=== PATIENT | male | born 1965 | race Caucasian/White ===

== ENCOUNTER 2016-09-26 01:54 | Inpatient (IN) | payer OTHER ==
[~2016-09-26] VITALS: Ht 182.9 cm; Wt 118.8 kg
--- NOTE | ~2016-09-26 | EKG ---
[address] [place] [address] ELECTROCARDIOGRAM REPORT Name: ZABRINA ORNELAS Room #: 547-P [facility]#: [id number] Admission: 09/26/16 Attend Phys: Cassius Francisco MD Discharge: Date of : 63 Report #: [id number] THIS REPORT FOR: //name// [facility] ED Test Date: 2016-09-26 Test Time: 02:11:47 Pat Name: ZABRINA ORNELAS Department: Room: 547 Gender: M Financial Counselor: adalberto : 1965 Requested By: Leighton Bernstein Order Number: [id number] MD: Aroldo Lugo Measurements Intervals [place] Rate: 71 P: 15 RI: 146 QRS: -3 QRSD: 94 T: 6 QT: 422 QTc: 459 Interpretive Statements Sinus rhythm Abnormal R-wave progression, early transition Baseline wander in lead(s) III Compared to ECG 11/11/2014 16:58:24 Sinus tachycardia no longer present Electronically Signed On 09-26-2016 8:12:23 CDT by Aroldo Lugo [email or web address] <ELECTRONICALLY SIGNED> By: Aroldo Lugo MD, [facility] 09/26/16 0812 0 0 Aroldo Lugo MD, [facility] /EPI
[~2016-09-26 01:54] MED LIST: ACCUPRIL; ACID CONTROL20 MG PO; AMBIEN 5 MG TABL5 M1 PO; AMLODIPINE BESY10 MG PO; ATIVAN1 MG PO; CARAFATE 1 GM TA1 G1 PO; CELEXA; CITRATE OF MAG296 ML PO; CLONIDINE0.1; DESYREL; KLONOPIN2 MG; NEXIUM40 MG PO; NORCO 5-325 TA1 EACH PO; OXYCONTIN10 M1; PEPCID40 MG PO; PHENERGAN 25 MG25 M1 PO; PHENERGAN25 MG RE; PROTONIX40 MG PO; REVIA 50 MG TAB50 M1 PO; TOPAMAX50 MG; ZANTAC 150MG T150 MG PO; ZOFRAN 4 MG ORAL4 M1 DIS; ZOFRAN 4 MG ORAL4 MG PO; ZOFRAN ODT4 MG PO; ZOLOFT50 MG PO
[2016-09-26 01:59] VITALS: BP 161/104
[2016-09-26 02:29] LABS: ABSOLUTE NEUTROPHILS 4.5 thou/uL (1.4-8.2); BASOPHILS 0.9 % (0.0-2.0); HEMATOCRIT 45.5 % (42.0-52.0); HEMOGLOBIN 15.6 gm/dL (14.0-18.0); LYMPHOCYTES 16.1 % (24.0-44.0); MANUAL DIFF NO; MCH 31.5 pg (26.0-34.0); MCHC 34.3 g/dL (28.0-37.0); MCV 91.8 fL (80.0-100.0); MONOCYTES 10.3 % (1.0-8.0); PLATELET COUNT 139 thou/uL (150-400); POLYS 70.7 % (36.0-66.0); RBC 4.95 mil/uL (4.50-6.00); WBC 6.3 thou/uL (4.0-11.0)
[2016-09-26 02:36] LABS: CALCIUM 8.2 mg/dL (8.5-10.1); CREATININE 0.9 mg/dL (0.7-1.3); POTASSIUM 3.7 mmol/L (3.5-5.1)
[2016-09-26 02:40] LABS: ALBUMIN 4.1 g/dL (3.4-5.0); TOTAL BILIRUBIN 0.7 mg/dL (<0.1-1.0); TOTAL PROTEIN 7.3 g/dL (6.4-8.2)
[2016-09-26 03:09] LABS: URINE BILIRUBIN NEGATIVE (Negative); URINE BLOOD NEGATIVE (Negative); URINE COLOR YELLOW; URINE GLUCOSE-RANDOM* NEGATIVE (Negative); URINE KETONES NEGATIVE (Negative); URINE LEUKOCYTES-REFLEX NEGATIVE (Negative); URINE PROTEIN (DIPSTICK) NEGATIVE (Negative); URINE SPECIFIC GRAVITY 1.015 (1.003-1.035); URINE UROBILINOGEN 0.2 E.U./dl (0.2-1.0)
[2016-09-26 03:17] LABS: AMP/METHAMP Negative (Negative); BARBITURATES Negative (Negative); BENZODIAZEPINES Negative (Negative); COCAINE Negative (Negative); METHADONE Negative (Negative); OPIATES Negative (Negative); PCP Negative (Negative); THC Negative (Negative)
[2016-09-26 03:52] VITALS: BP 160/98
[2016-09-26 03:53] VITALS: BP 152/100
[2016-09-26 08:11] VITALS: BP 148/97
[2016-09-26 15:58] VITALS: BP 144/94
[2016-09-26 19:57] VITALS: BP 143/86
[2016-09-27 05:29] VITALS: BP 153/92
[2016-09-27 07:37] VITALS: BP 135/78
[2016-09-27 08:36] LABS: HEMOGLOBIN 14.6 gm/dL (14.0-18.0); MCH 31.3 pg (26.0-34.0); MCV 92.2 fL (80.0-100.0); PLATELET COUNT 124 thou/uL (150-400); RBC 4.66 mil/uL (4.50-6.00); RDW 14.8 % (10.5-14.5); WBC 3.8 thou/uL (4.0-11.0)
[2016-09-27 08:38] LABS: MANUAL DIFF YES
[2016-09-27 08:46] LABS: CALCIUM 7.9 mg/dL (8.5-10.1); CREATININE 0.8 mg/dL (0.7-1.3); POTASSIUM 3.7 mmol/L (3.5-5.1)
[2016-09-27 09:05] LABS: ABSOLUTE NEUTROPHILS 2.6 thou/uL (1.4-8.2); ANISOCYTOSIS 1+; POLYCHROMASIA OCCASIONAL; TOTAL CELL COUNT 100
[2016-09-27 16:03] VITALS: BP 150/96
[2016-09-27 19:23] VITALS: BP 140/90
[2016-09-28 03:20] VITALS: BP 155/104
[2016-09-28 07:28] VITALS: BP 128/79
[2016-09-28 09:47] VITALS: BP 128/79
[2016-09-28 11:56] VITALS: BP 128/79
== END 2016-09-28 11:45 | disposition home or self-care (01) | DRG 392 ==
LOC: ER 01:54 → EROBS 03:15 → 5S 03:41
PROVIDERS: Emergency Medicine; Internal Medicine Geriatric Medicine
DX: K59.00 Constipation, unspecified (principal); G89.29 Other chronic pain; F41.9 Anxiety disorder, unspecified; F32.9 Major depressive disorder, single episode, unspecified; J45.909 Unspecified asthma, uncomplicated; F10.10 Alcohol abuse, uncomplicated; Z96.619 Presence of unspecified artificial shoulder joint; Z96.659 Presence of unspecified artificial knee joint; M25.569 Pain in unspecified knee; K76.0 Fatty (change of) liver, not elsewhere classified; R51 Headache; Z88.6 Allergy status to analgesic agent; Z71.41 Alcohol abuse counseling and surveillance of alcoholic; Z79.899 Other long term (current) drug therapy; Z86.010 Personal history of colon polyps
CPT/HCPCS: 10086

== ENCOUNTER 2016-10-01 15:39 | Emergency (ER) | payer OTHER ==
[~2016-10-01] VITALS: Ht 182.9 cm; Wt 113.4 kg
--- NOTE | ~2016-10-01 | EKG ---
[place] [address] [facility] [place] [address] ELECTROCARDIOGRAM REPORT Name: ZABRINA ORNELAS [facility] [id number] Admission: 10/01/16 Attend Phys: Discharge: 10/01/16 Date of : 63 Report #: [id number] THIS REPORT FOR: //name// [facility] ED Test Date: 2016-10-01 Test Time: 16:27:37 Pat Name: ZABRINA ORNELAS Department: Room: Gender: M Food Safety Coordinator: mateusz : 1965 Requested By: Cindy Beverly Order Number: [id number] MD: Allan Ferreira Measurements Intervals [place] Rate: 96 P: 39 VA: 152 QRS: -6 QRSD: 85 T: 18 QT: 354 QTc: 448 Interpretive Statements Sinus rhythm Baseline wander in lead(s) III,aVL,V5 Compared to ECG 09/26/2016 02:11:47 No significant changes Electronically Signed On 10-06-2016 8:06:40 CDT by Allan Ferreira [email or web address] <ELECTRONICALLY SIGNED> By: Allan Ferreira MD 05/805 26 26 Allan Ferreira MD /REGINE
[2016-10-01 16:29] LABS: ABSOLUTE NEUTROPHILS 6.9 thou/uL (1.4-8.2); BASOPHILS 0.7 % (0.0-2.0); EOSINOPHILS 1.4 % (0.0-3.0); HEMATOCRIT 47.8 % (42.0-52.0); HEMOGLOBIN 16.4 gm/dL (14.0-18.0); LYMPHOCYTES 12.9 % (24.0-44.0); MCH 31.4 pg (26.0-34.0); MCHC 34.3 g/dL (28.0-37.0); MCV 91.6 fL (80.0-100.0); MONOCYTES 9.7 % (1.0-8.0); PLATELET COUNT 184 thou/uL (150-400); POLYS 75.3 % (36.0-66.0); RBC 5.22 mil/uL (4.50-6.00); RDW 14.8 % (10.5-14.5); WBC 9.2 thou/uL (4.0-11.0)
[2016-10-01 16:30] LABS: MANUAL DIFF NO
[2016-10-01 16:38] LABS: ANION GAP 10 mmol/L (7-16); BUN 13 mg/dL (7-18); CALCIUM 9.5 mg/dL (8.5-10.1); CHLORIDE 105 mmol/L (98-107); CO2 25 mmol/L (21-32); GLUCOSE 104 mg/dL (74-106); POTASSIUM 4.2 mmol/L (3.5-5.1); SODIUM 140 mmol/L (136-145)
[2016-10-01 16:45] LABS: ALBUMIN 4.8 g/dL (3.4-5.0); ALKALINE PHOSPHATASE 73 U/L (46-116); SGOT 23 U/L (15-37); SGPT 37 U/L (30-65); TOTAL PROTEIN 8.3 g/dL (6.4-8.2); TROPONIN-I < 0.04 ng/mL (<0.04-0.07)
[2016-10-01] MEDS ORDERED: CARAFATE 1 GM TA1 G1 PO (18:16)
[2016-10-01] MEDS ORDERED: PRILOSEC 20 MG20 MG PO (18:16)
[2016-10-01] MEDS ORDERED: PROMS25 WY RECTAL (18:16)
[2016-10-01] MEDS ORDERED: ZOFRAN ODT4 MG PO (18:16)
[2016-10-01] MEDS ORDERED: PERCOCET 5-3251 EACH PO (18:32)
[2016-10-01 18:55] LABS: URINE BILIRUBIN NEGATIVE (Negative); URINE BLOOD NEGATIVE (Negative); URINE COLOR YELLOW; URINE GLUCOSE-RANDOM* NEGATIVE (Negative); URINE KETONES NEGATIVE (Negative); URINE LEUKOCYTES-REFLEX NEGATIVE (Negative); URINE PROTEIN (DIPSTICK) TRACE (Negative); URINE UROBILINOGEN 0.2 E.U./dl (0.2-1.0)
== END 2016-10-01 19:00 | disposition home or self-care (01) ==
LOC: ER 15:39
PROVIDERS: Physician Assistant
DX: K29.70 Gastritis, unspecified, without bleeding (principal); J45.909 Unspecified asthma, uncomplicated; Z98.890 Other specified postprocedural states; Z88.5 Allergy status to narcotic agent; F10.99 Alcohol use, unspecified with unspecified alcohol-induced disorder

== ENCOUNTER 2016-10-17 12:48 | Inpatient (IN) | payer OTHER ==
[~2016-10-17] VITALS: Ht 182.9 cm; Wt 117.9 kg
--- NOTE | ~2016-10-17 | EKG ---
[address] [email or web address] [address] ELECTROCARDIOGRAM REPORT Name: ZABRINA ORNELAS Room #: 434-P [facility] IN M.R.#: [id number] Admission: 10/17/16 Attend Phys: Davie Barrett MD Discharge: 10/19/16 Date of : 63 Report #: [id number] THIS REPORT FOR: //name// [facility] ED Test Date: 2016-10-17 Test Time: 13:24:31 Pat Name: ZABRINA ORNELAS Department: Room: 434 Gender: M Applications Project Manager: MILAGRO : 1965 Requested By: Andressa Jasso Order Number: [id number] MD: Aroldo Lugo Measurements Intervals [place] Rate: 78 P: 9 DC: 143 QRS: -9 QRSD: 91 T: 4 QT: 414 QTc: 472 Interpretive Statements Sinus rhythm No significant abnormality Compared to ECG 10/01/2016 16:27:37 No significant changes Electronically Signed On 10-19-2016 13:47:04 CDT by Aroldo Lugo [email or web address] <ELECTRONICALLY SIGNED> By: Aroldo Lugo MD, [facility] 10/19/16 1347 1324 1324 Aroldo Lugo MD, [facility] /EPI
--- NOTE | ~2016-10-17 | H ---
[facility] [place] [address] HISTORY AND PHYSICAL Name: ZABRINA ORNELAS Room #: 434-P [facility] IN M.R.#: [id number] Admission: 10/17/16 Attend Phys: Davie Barrett MD Discharge: 10/19/16 Date of : 63 Report #: [id number] THIS REPORT FOR: //name// CC: Davie Barrett [facility] physician/PCP DATE OF SERVICE: 10/17/2016 DATE OF ADMISSION: 10/17/2016. REASON FOR ADMISSION: Nausea, vomiting, abdominal pain. HISTORY OF PRESENT ILLNESS: The patient is a 51-year-old gentleman who has had frequent admissions with similar complaints of severe nausea, vomiting and abdominal pain. He suffers from alcoholism as well as chronic knee and back pain. He was just recently admitted and discharged earlier this month with similar findings which seemed to resolve on their own. He again presented to the emergency room severely symptomatic today, notably hypertensive, complaining of significant pain all over his abdomen and unable to keep any food down with significant retching, dry heaves as well as some chills and other subjective symptoms. He is fairly uncomfortable in the emergency room and unable to keep much food down and is being admitted for further evaluation. He denies new headaches, skin rashes, diarrhea, dizziness, chest pain, shortness of breath or other problems at this time. PAST MEDICAL HISTORY: Includes, 1. Chronic alcohol use. 2. Chronic back pain. 3. Recurrent episodes of nausea, vomiting, abdominal pain. 4. Depression. 5. Erosive esophagitis and gastritis. PAST SURGICAL HISTORY: Includes shoulder, neck, back, and knee surgeries. FAMILY HISTORY: None significant. SOCIAL HISTORY: He is a nonsmoker. Reports heavy alcohol use. No drug use. REVIEW OF SYSTEMS: Twelve point review of systems performed and negative except as mentioned in history of present illness. PHYSICAL EXAMINATION: VITAL SIGNS: The patient is afebrile, pulse is 75, respiratory rate 20, O2 sat 97 on room air, and blood pressure is 196/120. GENERAL: Fairly uncomfortable gentleman, writhing in bed. CARDIOVASCULAR: S1, S2 present. [facility] [address] [place] [address] HISTORY AND PHYSICAL Name: ZABRINA ORNELAS Room #: 434-P [facility] IN M.R.#: [id number] Admission: 10/17/16 Attend Phys: Davie Barrett MD Discharge: 10/19/16 Date of : 63 Report #: [id number] RESPIRATORY: Air entry present bilaterally. ABDOMEN: Soft. No severe guarding, rebound or rigidity. Slight tenderness to epigastric region. EXTREMITIES: Lower extremities without edema. NEUROLOGICAL: Awake, alert. No obvious focal findings. SKIN: Unremarkable. No rash or lesions. LABORATORIES AND INVESTIGATIONS: CBC unremarkable. Chemistry within normal range. Urinalysis is pending. Imaging with a KUB demonstrates a nonspecific pattern. Recent abdomen and pelvis CT done earlier this month without any acute findings. ASSESSMENT AND PLAN: This is a 51-year-old gentleman presenting with a constellation of symptoms including nausea, vomiting, abdominal pain and hypertension. 1. Nausea, vomiting, abdominal pain. Unclear if this is related to any drug withdrawal or medication effect. His drug screen in the past has been negative. He denies any street drugs, and present screen testing is pending. He may have severe gastritis versus possibly a gastric or duodenal ulcer, especially in light of known esophagitis. At the present time, we will involve GI in his care to see if he may benefit from an EGD. This was reportedly considered at his last hospitalization, however, does not appear to have been performed. In the meantime, he will be started on antiemetics, pain control meds and famotidine. He does not appear to have concerning findings on his abdomen concerning for repeating a CT scan. His recent CT as mentioned above was unrevealing. 2. Hypertensive urgency, likely in the setting of significant discomfort and pain. We will attempt to control his symptoms as well as use p.r.n. blood pressure control medicines in the interim. 3. Deep venous thrombosis prophylaxis with SCDs. 4. Depression. Resume his home meds once he is able to take p.o. <ELECTRONICALLY SIGNED> By: Davie Barrett MD 10/21/16 1405 1629 1826 Davie Barrett MD /nt
[~2016-10-17 12:48] MED LIST changes: +PERCOCET 5-3251 EACH PO; +PRILOSEC 20 MG20 MG PO; +PROMS25 WY RECTAL
[2016-10-17 12:50] VITALS: BP 150/124
[2016-10-17 13:31] LABS: ANION GAP 13 mmol/L (7-16); BUN 12 mg/dL (7-18); CALCIUM 9.2 mg/dL (8.5-10.1); CHLORIDE 106 mmol/L (98-107); CO2 21 mmol/L (21-32); GLUCOSE 108 mg/dL (74-106); POTASSIUM 3.7 mmol/L (3.5-5.1); SODIUM 140 mmol/L (136-145)
[2016-10-17 13:34] LABS: ABSOLUTE NEUTROPHILS 5.2 thou/uL (1.4-8.2); BASOPHILS 0.6 % (0.0-2.0); EOSINOPHILS 1.2 % (0.0-3.0); HEMATOCRIT 48.9 % (42.0-52.0); HEMOGLOBIN 16.8 gm/dL (14.0-18.0); MCH 31.7 pg (26.0-34.0); MCHC 34.3 g/dL (28.0-37.0); MCV 92.4 fL (80.0-100.0); MONOCYTES 9.5 % (1.0-8.0); PLATELET COUNT 173 thou/uL (150-400); POLYS 73.7 % (36.0-66.0); RBC 5.29 mil/uL (4.50-6.00); RDW 14.6 % (10.5-14.5)
[2016-10-17 13:35] LABS: MANUAL DIFF NO
[2016-10-17] MEDS ORDERED: PHENERGAN 25 MG25 M1 PO (13:35)
[2016-10-17] MEDS ORDERED: PROMS25 WY RECTAL (13:35)
[2016-10-17 13:40] LABS: ALBUMIN 4.6 g/dL (3.4-5.0); ALKALINE PHOSPHATASE 73 U/L (46-116); DIRECT BILIRUBIN 0.1 mg/dL (<0.1-0.3); SGOT 23 U/L (15-37); SGPT 32 U/L (30-65); TOTAL PROTEIN 8.3 g/dL (6.4-8.2); TROPONIN-I < 0.04 ng/mL (<0.04-0.07)
[2016-10-17 16:07] VITALS: BP 196/121
[2016-10-17 18:17] VITALS: BP 155/115
[2016-10-17 19:46] VITALS: BP 160/112
[2016-10-17 20:41] VITALS: BP 120/83
[2016-10-18] VITALS (7 sets, daily range): BP systolic 124–182; BP diastolic 68–116
[2016-10-18 03:14] LABS: HEMATOCRIT 42.3 % (42.0-52.0); MCH 31.7 pg (26.0-34.0); MCHC 34.8 g/dL (28.0-37.0); MCV 91.1 fL (80.0-100.0); RBC 4.64 mil/uL (4.50-6.00); RDW 14.6 % (10.5-14.5); WBC 6.3 thou/uL (4.0-11.0)
[2016-10-18 03:18] LABS: HEMOGLOBIN 14.7 gm/dL (14.0-18.0)
[2016-10-18 03:21] LABS: CALCIUM 8.4 mg/dL (8.5-10.1); CREATININE 0.7 mg/dL (0.7-1.3); POTASSIUM 3.6 mmol/L (3.5-5.1)
[2016-10-18] MEDS ORDERED: BENTYL 10 MG CA10 MG PO (08:57)
[2016-10-19 03:30] VITALS: BP 140/71
[2016-10-19 05:40] LABS: HEMATOCRIT 40.9 % (42.0-52.0); HEMOGLOBIN 13.9 gm/dL (14.0-18.0); MCH 31.5 pg (26.0-34.0); MCHC 33.9 g/dL (28.0-37.0); MCV 92.9 fL (80.0-100.0); RBC 4.41 mil/uL (4.50-6.00); RDW 14.9 % (10.5-14.5); WBC 3.9 thou/uL (4.0-11.0)
[2016-10-19 06:00] LABS: ALBUMIN 3.2 g/dL (3.4-5.0); CREATININE 0.7 mg/dL (0.7-1.3); POTASSIUM 3.7 mmol/L (3.5-5.1)
[2016-10-19 07:54] VITALS: BP 138/89
[2016-10-19 11:31] VITALS: BP 138/89
[2016-10-19 12:51] VITALS: BP 138/89
== END 2016-10-19 12:52 | disposition home or self-care (01) | DRG 392 ==
LOC: ER 12:48 → 4S 15:04 → EROBS 15:04 → 4S 15:54
PROVIDERS: Emergency Medicine; Hospitalist
DX: R11.2 Nausea with vomiting, unspecified (principal); K21.9 Gastro-esophageal reflux disease without esophagitis; J45.909 Unspecified asthma, uncomplicated; I10 Essential (primary) hypertension; R10.9 Unspecified abdominal pain; G89.29 Other chronic pain; M54.9 Dorsalgia, unspecified; M25.569 Pain in unspecified knee; I16.0 Hypertensive urgency; F10.21 Alcohol dependence, in remission; F32.9 Major depressive disorder, single episode, unspecified; Z79.899 Other long term (current) drug therapy; Z88.6 Allergy status to analgesic agent; Z79.1 Long term (current) use of non-steroidal anti-inflammatories (NSAID)
CPT/HCPCS: 10195

== ENCOUNTER 2017-07-05 05:27 | Emergency (ER) | payer OTHER ==
[~2017-07-05] VITALS: Ht 185.4 cm; Wt 124.7 kg
--- NOTE | ~2017-07-05 | EKG ---
[address] [address] [place] [address] ELECTROCARDIOGRAM REPORT Name: ZABRINA ORNELAS Room #: DEP [facility]#: [id number] Admission: 07/05/17 Attend Phys: Discharge: 07/05/17 Date of : 63 Report #: [id number] THIS REPORT FOR: //name// [facility] ED Test Date: 2017-07-05 Test Time: 05:31:02 Pat Name: ZABRINA ORNELAS Department: Room: Gender: M Health Workers: 99 : 1965 Requested By: Carlos Li Order Number: [id number] MD: Aroldo Lugo Measurements Intervals [place] Rate: 95 P: 36 MA: 146 QRS: -8 QRSD: 89 T: -5 QT: 385 QTc: 484 Interpretive Statements Sinus rhythm Borderline T abnormalities, inferior leads Borderline prolonged QT interval Compared to ECG 10/17/2016 13:24:31 T-wave abnormality now present QT interval is slightly thickened Electronically Signed On 07-06-2017 7:33:48 SIPHON OPERATOR by Aroldo Lugo [email or web address] <ELECTRONICALLY SIGNED> By: Aroldo Lugo MD, [facility] 07/06/17 0733 0 Aroldo Lugo MD, [facility] /EPI
[~2017-07-05 05:27] MED LIST changes: +BENTYL 10 MG CA10 MG PO
[2017-07-05 05:53] LABS: HEMATOCRIT 47.7 % (42.0-52.0); HEMOGLOBIN 16.7 gm/dL (14.0-18.0); MCV 94.3 fL (80.0-100.0); PLATELET COUNT 157 thou/uL (150-400); RBC 5.06 mil/uL (4.50-6.00); RDW 16.6 % (10.5-14.5); WBC 3.8 thou/uL (4.0-11.0)
[2017-07-05] MEDS ORDERED: TRAMADOL 50 MG50 MG PO (05:56)
[2017-07-05] MEDS ORDERED: NAPROSYN500 MG PO (05:56)
[2017-07-05 06:04] LABS: ANION GAP 15 mmol/L (7-16); BUN 4 mg/dL (7-18); CALCIUM 8.8 mg/dL (8.5-10.1); CHLORIDE 104 mmol/L (98-107); CO2 23 mmol/L (21-32); GLUCOSE 131 mg/dL (74-106); POTASSIUM 3.4 mmol/L (3.5-5.1); SODIUM 142 mmol/L (136-145)
[2017-07-05 06:10] LABS: ALBUMIN 3.9 g/dL (3.4-5.0); MAGNESIUM 1.9 mg/dL (1.8-2.4); SGOT 31 U/L (15-37); SGPT 43 U/L (30-65); TOTAL BILIRUBIN 0.4 mg/dL (<0.1-1.0); TOTAL PROTEIN 7.8 g/dL (6.4-8.2); TROPONIN-I < 0.04 ng/mL (<0.06)
[2017-07-05 06:25] LABS: ABSOLUTE NEUTROPHILS 2.6 thou/uL (1.4-8.2); ANISOCYTOSIS 1+; ATYPICAL LYMPHS 1 %
[2017-07-05 06:26] LABS: POLYCHROMASIA OCCASIONAL
[2017-07-05 06:39] VITALS: BP 157/101
== END 2017-07-05 06:41 | disposition home or self-care (01) ==
LOC: ER 05:27
PROVIDERS: Emergency Medicine
DX: R07.89 Other chest pain (principal); F10.10 Alcohol abuse, uncomplicated; I10 Essential (primary) hypertension; J45.909 Unspecified asthma, uncomplicated; G47.30 Sleep apnea, unspecified; Z88.5 Allergy status to narcotic agent; W00.0XXA Fall on same level due to ice and snow, initial encounter; Y93.89 Activity, other specified; Y92.89 Other specified places as the place of occurrence of the external cause; Y99.8 Other external cause status

== ENCOUNTER 2018-07-31 04:51 | Inpatient (IN) | payer BC ==
[~2018-07-31] VITALS: Ht 190.5 cm; Wt 136.1 kg
--- NOTE | ~2018-07-31 | HC ---
[facility] [place] [address] CONSULTATION Name: ZABRINA ORNELAS Room #: 358-P [facility] IN M.R.#: [id number] Admission: 07/31/18 ������������������ Attend Phys: Cassius Francisco MD Discharge: ������������������ Date of : 63 Report #: [id number] THIS REPORT FOR: //name// CC: FAM unknown Cassius Francisco DATE OF SERVICE: 07/31/2018 HISTORY OF PRESENT ILLNESS: This is a gentleman with respect to alcohol use disorder. He acknowledges some difficulty maintaining sobriety. He acknowledges underlying anxiety and at times depression. ____ is outpatient provider. Unclear if there has been much adherence lately. Significant craving when he does not use, "I just try to keep busy." He is feeling better from the standpoint of withdrawal. PAST PSYCHIATRIC HISTORY: Depression, anxiety, alcohol use disorder. ALLERGIES: HYDROCODONE. CURRENT MEDICATIONS: Include Ativan detox, citalopram, amlodipine, thiamine. PAST MEDICAL HISTORY: Secondary to alcohol use disorder. SOCIAL HISTORY: I believe he lives alone. Tries to keep busy with work. MENTAL STATUS EXAMINATION: male, casually dressed, mild tremor, stable mood and affect. No suicidal ideation, no homicidal ideation. No hallucinations, no delusions. Insight and judgment are improved. DIAGNOSES: Alcohol use disorder, major depressive disorder, recurrent, moderate; generalized anxiety disorder. RECOMMENDATIONS: Can continue to follow with ____ and should probably resume citalopram. Can use trazodone for insomnia. Prior to discharge, would probably look at starting naltrexone 25-50 mg and following up on hepatic function panel within 2-4 weeks on this agent. In general, he has not benefitted from AA groups per his report. He has done better by trying to stay out of the house and keep busy. ��������������������������������������������� ���������������������������������������� By: ��������������������������������������������� [id number] 0324 Moisés Mejia MD /nt
[~2018-07-31 04:51] MED LIST changes: +NAPROSYN500 MG PO; +TRAMADOL 50 MG50 MG PO
[2018-07-31 04:52] VITALS: BP 191/100
[2018-07-31 05:11] LABS: BASOPHILS 0.9 % (0.0-2.0); EOSINOPHILS 0.3 % (0.0-3.0); HEMATOCRIT 45.5 % (42.0-52.0); HEMOGLOBIN 15.5 gm/dL (14.0-18.0); LYMPHOCYTES 12.2 % (24.0-44.0); MCV 91.2 fL (80.0-100.0); MONOCYTES 5.5 % (1.0-8.0); PLATELET COUNT 148 thou/uL (150-400); POLYS 81.1 % (36.0-66.0); RBC 4.98 mil/uL (4.50-6.00); RDW 14.3 % (10.5-14.5); WBC 6.2 thou/uL (4.0-11.0)
[2018-07-31 05:19] LABS: CALCIUM 8.2 mg/dL (8.5-10.1); CREATININE 0.9 mg/dL (0.7-1.3); POTASSIUM 3.2 mmol/L (3.5-5.1)
[2018-07-31 05:25] LABS: ALBUMIN 4.5 g/dL (3.4-5.0); DIRECT BILIRUBIN 0.2 mg/dL (<0.1-0.3); TOTAL BILIRUBIN 1.2 mg/dL (<0.1-1.0); TOTAL PROTEIN 8.4 g/dL (6.4-8.2)
[2018-07-31 06:02] LABS: PCO2 32.3 mmHg (35.0-45.0); pH 7.312 (7.360-7.450); sO2 95.5 % (92.0-98.0)
[2018-07-31 06:24] LABS: URINE BILIRUBIN NEGATIVE (Negative); URINE BLOOD TRACE (Negative); URINE CLARITY CLEAR; URINE COLOR YELLOW; URINE GLUCOSE-RANDOM* 2+ (Negative); URINE KETONES 2+ (Negative); URINE LEUKOCYTES-REFLEX NEGATIVE (Negative); URINE NITRITE-REFLEX NEGATIVE (Negative); URINE PROTEIN (DIPSTICK) 1+ (Negative); URINE SPECIFIC GRAVITY >= 1.030 (1.005-1.035); URINE UROBILINOGEN 0.2 E.U./dl (0.2-1.0)
[2018-07-31 07:56] LABS: AMP/METHAMP Negative (Negative); BARBITURATES Negative (Negative); BENZODIAZEPINES Negative (Negative); COCAINE Negative (Negative); METHADONE Negative (Negative); OPIATES Negative (Negative); PCP Negative (Negative)
[2018-07-31 09:39] VITALS: BP 162/93
[2018-07-31 10:02] VITALS: BP 162/93
[2018-07-31 10:05] VITALS: BP 160/103
[2018-07-31 11:13] LABS: PHOSPHORUS 3.1 mg/dL (2.5-4.9)
[2018-07-31 11:40] LABS: FOLIC ACID 15.6 ng/mL (8.6-58.9)
--- NOTE | 2018-07-31 12:15 | NUR ---
52 YO MALE ADMITTED TO 358 BY CART FROM ER. A&O TO PLACE, TIME OFF ON WHAT DAY THOUGH KNOWS WHO THE PRESIDENT IS. TREMORS TO ALL EXTREM. NOTED, SWEATING, BODY IS FLUSHED IN COLOR, RESP. AT 24-26/MIN. HR IS 106. ORIENTED PT TO ROOM/CALL LIGHT, IV CONT. STARTED, IV ATIVAN GIVEN, THIAMIN IV STARTED. CIWAL AND ADMISSION ASSESSMENT COMPLETE.
[2018-07-31 16:09] VITALS: BP 185/117
[2018-07-31 19:44] VITALS: BP 156/103
--- NOTE | 2018-08-01 04:33 | NUR ---
PATIENT AOX4 MAKES NEEDS KNOWN. PATIENT CIWA SCORE WAS HIGH AT 2000 ATIVAN GIVEN PER ORDER. PATIENT WAS ASLEEP FOR 0000 CIWA, NO S/S OF WITHDRAW AT THIS TIME. PATIENT IN BED ASLEEP AT THIS TIME BREATHING REGULAR AND UNLABOURED.
[2018-08-01 04:44] VITALS: BP 172/111
[2018-08-01 07:39] VITALS: BP 156/102
[2018-08-01 07:42] VITALS: BP 163/100
--- NOTE | 2018-08-01 09:08 | NUR ---
PT A&OX4, IV INTACT IN L AC INFUSING NS@100/HR. HAS MODERATE TREMORS, HR NORMAL. BP 156/102. PT GIVEN AM SCHED NORVASC. PT C/O CONGESTION, LS HAVE SLIGHT EXP. WHEEZES. WILL CONT PO.
[2018-08-01 09:22] LABS: HEMATOCRIT 43.4 % (42.0-52.0); HEMOGLOBIN 14.7 gm/dL (14.0-18.0); MCH 31.1 pg (26.0-34.0); MCHC 33.9 g/dL (28.0-37.0); MCV 91.7 fL (80.0-100.0); RBC 4.74 mil/uL (4.50-6.00); RDW 14.6 % (10.5-14.5); WBC 5.2 thou/uL (4.0-11.0)
[2018-08-01 09:33] LABS: CALCIUM 8.3 mg/dL (8.5-10.1); CREATININE 0.8 mg/dL (0.7-1.3); MAGNESIUM 2.2 mg/dL (1.8-2.4); POTASSIUM 3.7 mmol/L (3.5-5.1)
[2018-08-01 11:16] VITALS: BP 153/92
[2018-08-01 15:57] VITALS: BP 141/96
[2018-08-01 19:02] VITALS: BP 118/64
[2018-08-02 00:20] VITALS: BP 152/96
[2018-08-02 03:27] VITALS: BP 144/95
--- NOTE | 2018-08-02 06:41 | NUR ---
PT MAKING PROGRESS TOWARDS GOALS. NOTED CHEST XRAY RESULTS. LUNGS CLEAR TO AUSCULTATION. PT DOES REPORT NASAL CONGESTION AND HEADACHE. REFUSED TYLENOL THIS AM IN FAVOR OF WAITING FOR THE NEXT DOSE OF IBUPROFEN.
[2018-08-02 08:00] VITALS: BP 172/109
--- NOTE | 2018-08-02 08:06 | EKG ---
[address] [place] [address] ELECTROCARDIOGRAM REPORT Name: ZABRINA ORNELAS Room #: 358-P [facility] IN M.R.#: [id number] ������������������ Admission: 07/31/18 ������������������ Attend Phys: Cassius Francisco MD Discharge: ������������������ Date of : 63 Report #: [id number] ����������������������������������������������������������������� [id number] THIS REPORT FOR: //name// [facility] ED Test Date: 2018-07-31 Test Time: 05:52:59 Pat Name: ZABRINA ORNELAS Department: Room: 358 Gender: M Consumer Services Consultant: fuad : 1965 Requested By: Cady Cowan Order Number: [id number] MD: Aroldo Lugo Measurements Intervals [place] Rate: 100 P: 18 NE: 161 QRS: -4 QRSD: 96 T: 1 QT: 384 QTc: 496 Interpretive Statements Sinus tachycardia Borderline prolonged QT interval Compared to ECG 07/05/2017 05:31:02 No significant change was found Electronically Signed On 08-02-2018 8:06:19 CDT by Aroldo Lugo [email or web address] ��������������������������������������������� <ELECTRONICALLY SIGNED> ���������������������������������������� By: Aroldo Lugo MD, [facility] ��������������������������������������������� 08/02/18 [phone] 0552 Aroldo Lugo MD, [facility] /EPI
[2018-08-02 09:23] LABS: HEMATOCRIT 43.3 % (42.0-52.0); HEMOGLOBIN 14.5 gm/dL (14.0-18.0); MCH 31.1 pg (26.0-34.0); MCHC 33.5 g/dL (28.0-37.0); RBC 4.65 mil/uL (4.50-6.00); RDW 14.6 % (10.5-14.5); WBC 4.7 thou/uL (4.0-11.0)
[2018-08-02 09:44] LABS: CALCIUM 8.3 mg/dL (8.5-10.1); CREATININE 0.6 mg/dL (0.7-1.3); MAGNESIUM 2.1 mg/dL (1.8-2.4); POTASSIUM 3.9 mmol/L (3.5-5.1)
[2018-08-02 14:00] VITALS: BP 157/110
--- NOTE | 2018-08-02 15:26 | NUR ---
assessment: CM REVIEWED CHART AND MET WITH PATIENT AT THE BEDSIDE. PT IS ALERT AND ORIENTED X4. PT REPORTS HE LIVES IN AN APT ALONE. PT REPORTS HAVING ABOUT 12 STEPS TO ENTER WITH HANDRAILS ON EACH SIDE. PT WAS ADMITTED FOR ETOH INTOXICATION. PT IS STILL HAVING SOME SOB AND HEADACHES TODAY. CM DISCUSSED ROLE WITH PATIENT. PT STATES HE HAD BEEN TO AA IN THE PAST BUT HE IS NOT A BIG FAN OF AA. PT REPORTS THAT HE HAS A PCP AND ALSO FOLLOWS UP WITH DR. LEAL FOR ANXIETY. CM PROVIDED PATIENT WITH [facility] PAPERWORK/AA RESOURCES/DETOX CENTER/ ETOH RESOURCES. PATIENT IS LISTED PATIENT PAY AND REFERRAL WAS SENT TO [facility]. PT REPORTS NO FURTHER NEEDS FROM CM AT THIS TIME.
[2018-08-02 15:52] VITALS: BP 123/78
--- NOTE | 2018-08-02 17:49 | NUR ---
PATIENT ALERT AND ORIENTED X4, HEADACHE MILDLY CONTROLLED WITH MEDICATION. SINUS RHYTHM ON EDGE POLISHER. ON ROOM AIR, 2L FOR COMFORT. TOLERATING DIET. UP WITH STANDBY ASSISTANCE. NO SIGNS OF ACUTE DISTRESS NOTED AT THIS TIME. WILL CONTINUE TO MONITOR.
[2018-08-02 19:57] VITALS: BP 149/97
[2018-08-03 05:11] VITALS: BP 150/90
[2018-08-03 05:47] LABS: HEMATOCRIT 42.8 % (42.0-52.0); HEMOGLOBIN 14.3 gm/dL (14.0-18.0); MCH 31.2 pg (26.0-34.0); MCHC 33.5 g/dL (28.0-37.0); RBC 4.61 mil/uL (4.50-6.00); RDW 14.2 % (10.5-14.5); WBC 4.7 thou/uL (4.0-11.0)
[2018-08-03 05:51] LABS: CALCIUM 8.3 mg/dL (8.5-10.1); CREATININE 0.7 mg/dL (0.7-1.3); MAGNESIUM 2.1 mg/dL (1.8-2.4); POTASSIUM 3.5 mmol/L (3.5-5.1)
--- NOTE | 2018-08-03 06:39 | NUR ---
PT MAKING PROGRESS TOWARDS GOALS. ON O2 A 2L PER NC OVERNIGHT. PT HAS HX OF SLEEP APNEA. DID DISCUSS AND ENCOURAGE USE OF CPAP AT HOME. LUNGS CLEAR, DIMINISHED IN BOTH BASES.
[2018-08-03 08:12] LABS: ALBUMIN 3.4 g/dL (3.4-5.0); DIRECT BILIRUBIN 0.1 mg/dL (<0.1-0.3); TOTAL BILIRUBIN 0.5 mg/dL (<0.1-1.0)
[2018-08-03 08:19] VITALS: BP 152/100
--- NOTE | 2018-08-03 09:04 | NUR ---
PT ADMITS TO FEARING RETURNING HOME D/T THAT'S WHERE HE'S MOST LIKELY TO DRINK, DISCUSSED GOD AND AA, HIS ALIENATED DAUGHTERS, TOLD HIM WE'D WALK IN HALLS LATER THIS AFTERNOON. ONLY SLIGHT TREMORS, MOSTLY HEADACHE AND AGITATION/ANXIETY. RASH UNDER PITS, RX NOW FOR TOPICAL APPLICATION FOR SX. WILL CONTINUE TO MONITOR
[2018-08-03 12:04] VITALS: BP 160/113
[2018-08-03 16:52] VITALS: BP 174/107
[2018-08-03 18:58] VITALS: BP 128/70
[2018-08-04 03:45] VITALS: BP 138/96
--- NOTE | 2018-08-04 06:43 | NUR ---
PT MAKING PROGRESS TOWARDS GOALS. NO SOA REPORTED BY PT. NO COUGH NOTED. DID STATE THAT HE WAS FEELING LESS CONGESTED. IBUPROFEN ONCE FOR PAIN.
[2018-08-04 08:02] VITALS: BP 137/90
[2018-08-04 10:41] LABS: HEMATOCRIT 43.4 % (42.0-52.0); HEMOGLOBIN 14.5 gm/dL (14.0-18.0); MCH 30.8 pg (26.0-34.0); MCHC 33.4 g/dL (28.0-37.0); MCV 92.4 fL (80.0-100.0); RBC 4.69 mil/uL (4.50-6.00); RDW 14.2 % (10.5-14.5); WBC 3.9 thou/uL (4.0-11.0)
[2018-08-04 10:48] LABS: CALCIUM 8.9 mg/dL (8.5-10.1); CREATININE 0.7 mg/dL (0.7-1.3); POTASSIUM 3.7 mmol/L (3.5-5.1)
[2018-08-04 12:49] VITALS: BP 145/84
[2018-08-04] MEDS ORDERED: VITAMIN B-1100 M2 PO (13:17)
[2018-08-04] MEDS ORDERED: MULTIVITAMINS1 EAC7 PO (13:19)
[2018-08-04] MEDS ORDERED: AMLODIPINE BESYL5 M1 PO (13:24)
[2018-08-04 15:27] VITALS: BP 137/87
--- NOTE | 2018-08-04 16:21 | NUR ---
ON-GOING ASSESSMENT: PT HAS ORDERS TO DISCHARGE HOME TODAY. PT REPORTS NEEDING TRANSPORTATION. CM FILLED OUT CAB VOUCHER FOR PATIENT AND LEFT WITH BEDSIDE RN. ONCE PATIENT IS READY FOR DISCHARGE HE IS TO GO TO SECURITY AND THEY CAN PAGE CAB.
--- NOTE | 2018-08-04 17:37 | NUR ---
ASSUMED CARE OF PT AT APPROX 0700. PT IS ALERT AND ORIENTED X4. MONITORED ON TELE AND ABLE TO MAINTAIN 02 SAT >90 ON RA. PT DENIES PAIN AND SOA. ASSESSMENT CHARTED. VSS. RECIEVED ORDER FOR DC. COMPLETED DC. CALLED CAB FOR PATIENT CAB VOUCHER WAS PROVIDED BY CASE MANAGEMENT. PT LEFT VIA TRANSPORT TO CAB. DC INSTRUCTIONS SIGNED. PT HAS NO NEW CONCERNS. WORK RELEASE PROVIDED TO PT. PT HAS MET POC GOALS OF DC.
== END 2018-08-04 17:37 | disposition home or self-care (01) | DRG 897 ==
LOC: ER 04:51 → EROBS 08:00 → 3W 08:00 → EROBS 09:26 → 3W 09:50 → ENTRNSPT 08-04 17:30 → 3W 08-04 17:37
PROVIDERS: Emergency Medicine; ADMIT Internal Medicine
DX: F10.129 Alcohol abuse with intoxication, unspecified (principal); E87.2 Acidosis; I10 Essential (primary) hypertension; J45.909 Unspecified asthma, uncomplicated; E86.0 Dehydration; F32.9 Major depressive disorder, single episode, unspecified; F41.1 Generalized anxiety disorder; D69.6 Thrombocytopenia, unspecified; Z88.6 Allergy status to analgesic agent; Z79.899 Other long term (current) drug therapy
CPT/HCPCS: 10879